=== PATIENT | male | born 1960 | race Asian ===

== ENCOUNTER 2020-12-12 16:35 | Emergency (ER) | payer OTHER ==
[~2020-12-12] VITALS: Ht 177.8 cm; Wt 72.0 kg
[2020-12-12] MEDS ORDERED: KETOROLAC 30MG/ML VIAL IV STA (16:39)
[2020-12-12] MEDS ORDERED: SODIUM CHLORIDE 0.9% 1,000 ML IV ONE (16:45)
[2020-12-12 18:44] LABS: BASOPHILS % 0.5 % (0.0-2.0); EOSINOPHILS % 2.4 % (0.0-5.0); HEMATOCRIT. 41.7 % (42.0-52.0); HEMOGLOBIN. 14.1 g/dL (14.0-18.0); LYMPHOCYTES % 35.2 % (20.0-50.0); MEAN CORPUSCULAR HEMOGLOBIN 30.1 pg (28.0-32.0); MEAN CORPUSCULAR VOLUME 88.9 fL (80.0-94.0); MEAN PLATELET VOLUME 8.8 fl (7.4-10.4); MONOCYTES % 7.3 % (2.0-8.0); NEUTROPHILS % 54.6 % (40.0-76.0); PLATELET 185 x1000/uL (130-400); RED BLOOD CELL COUNT 4.69 mill/uL (4.7-6.1); RED CELL DISTRIBUTION WIDTH 12.5 % (11.6-14.6)
[2020-12-12 18:51] LABS: CHLORIDE 108 mEq/L (98-107)
[2020-12-12 19:09] LABS: CLARITY URINE CLEAR (CLEAR); COLOR URINE YELLOW (YELLOW); KETONES URINE NEGATIVE (NEGATIVE); LEUKOCYTE ESTERASE URINE NEGATIVE (NEGATIVE); NITRITE URINE NEGATIVE (NEGATIVE); OCCULT BLOOD URINE NEGATIVE (NEGATIVE); PROTEIN URINE NEGATIVE (NEGATIVE); SPECIFIC GRAVITY URINE 1.006 (1.005-1.030); UROBILINOGEN URINE 0.2 E.U./dL (0.2-1.0)
[2020-12-12] MEDS ORDERED: HYDROCODONE/ACETAMINOPHEN 5/325MG TABLET PO ONE (19:45)
[2020-12-12] MEDS ORDERED: CYCL10TA7 MT (19:45)
[2020-12-12] MEDS ORDERED: IBUP-2028 MT (19:45)
[2020-12-12 20:55] VITALS: BP 104/52
== END 2020-12-12 20:58 | disposition home or self-care (01) ==
LOC: ER 16:35
DX: M54.5 Low back pain (principal)
CPT/HCPCS: 36415; 72100; 74176; 80053; 81003; 85025; 96361; 96374; 99285; J1885; J7030